=== PATIENT | male | born 1980 | race Caucasian/White ===

== ENCOUNTER 2017-06-21 19:51 | Emergency (ER) | payer SELFPAY ==
[2017-06-21 19:56] VITALS: BP 138/73; PULSE 116; RESP 18; TEMP 98.1; O2SAT 96
--- NOTE | 2017-06-21 20:51 | ED PDOC ---
HPI: Psych/Substance Abuse Time Seen by Provider: 06/21/17 20:06 Chief Complaint (Nursing): Medical Clearance Chief Complaint (Provider): Medical Clearance History Per: Patient History/Exam Limitations: no limitations Onset/Duration Of Symptoms: Days Additional History Per: Law Enforcement Additional Complaint(s): Patient is a 37 y/o male with a past medical history of PTSD and hypertension, brought in by police for medical clearance for incarceration. Patient offers no physical complaints at this time. Denies any suicidal or homicidal ideation. [facility] [place] Past Medical History Reviewed: Historical Data, Nursing Documentation, Vital Signs Vital Signs: Last Vital Signs Temp 98.1 F 06/21/17 19:53 Pulse 116 H 06/21/17 19:53 Resp 18 06/21/17 19:53 BP 138/73 06/21/17 19:53 Pulse Ox 96 06/21/17 19:53 - Medical History PMH: HTN, Post Traumatic Stress Disorder - Family History Family History: States: Unknown Family Hx - Allergies Allergies/Adverse Reactions: Allergies Allergy/AdvReac Type Severity Reaction Status Date / Time No Known Allergies Allergy Verified 06/21/17 19:56 Review of Systems ROS Statement: Except As Marked, All Systems Reviewed And Found Negative Cardiovascular: Negative for: Chest Pain Respiratory: Negative for: Shortness of Breath Psych: Negative for: Suicidal ideation, Other (homicidal ideation) Physical Exam - Reviewed Nursing Documentation Reviewed: Yes Vital Signs Reviewed: Yes - Physical Exam Appears: Positive for: Non-toxic, No Acute Distress Head Exam: Positive for: ATRAUMATIC, NORMOCEPHALIC Skin: Positive for: Normal Color, Warm, Dry Eye Exam: Positive for: EOMI, Normal appearance, PERRL Neck: Positive for: Normal, Painless ROM Cardiovascular/Chest: Positive for: Regular Rate, Rhythm. Negative for: Murmur Respiratory: Positive for: Normal Breath Sounds. Negative for: Accessory Muscle Use, Respiratory Distress Gastrointestinal/Abdominal: Positive for: Normal Exam, Soft. Negative for: Tenderness Extremity: Positive for: Normal ROM. Negative for: Pedal Edema, Deformity Neurologic/Psych: Positive for: Alert, Oriented (x3) - ECG O2 Sat by Pulse Oximetry: 96 (RA) Pulse Ox Interpretation: Normal Medical Decision Making Medical Decision Making: Time: 20:29 Initial Plan: --Pending crisis evaluation Scribe Attestation: Documented by Valery Mccracken, acting as a scribe for Lashell Velasco PA-C Provider Scribe Attestation: All medical record entries made by the Scribe were at my direction and personally dictated by me. I have reviewed the chart and agree that the record accurately reflects my personal performance of the history, physical exam, medical decision making, and the department course for this patient. I have also personally directed, reviewed, and agree with the discharge instructions and disposition. Disposition - Clinical Impression Clinical Impression: PTSD (post-traumatic stress disorder) - Patient ED Disposition Is Patient to be Admitted: No - Disposition Disposition: Discharged/Transfer to Law Enforcement Disposition Time: 21:29 Condition: STABLE Additional Instructions: Patient is medically and psychiatrically cleared for incarceration Instructions: Post Traumatic Stress Disorder (ED) Forms: [employer] (Iranian)
== END 2017-06-21 21:35 ==
LOC: H.ER 19:51
DX: F43.10 Post-traumatic stress disorder, unspecified